=== PATIENT | male | born 1960 | race African-American/Black ===

== ENCOUNTER 2018-10-26 05:59 | Emergency (ER) | payer MEDICAID ==
[~2018-10-26] VITALS: Ht 180.3 cm; Wt 108.9 kg
[~2018-10-26 05:59] MED LIST: ASPIRIN81 M3 PO; HYDROCHLOROTHIA25 MG ORAL; LISINOPRIL20 MG ORAL; METOPROLOL SUCC50 MG ORAL; METOPROLOL TART25 MG ORAL; PLAVIX75 MG ORAL
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
[2018-10-26 06:11] VITALS: BP 168/97
[2018-10-26] MEDS ORDERED: IBUPROFEN600 MG ORAL (06:18)
--- NOTE | 2018-10-26 06:19 | Emergency Room Report ---
History of Present Illness General Chief Complaint: Burn/Smoke Inhalation Source: Patient Present Illness [facility] This is a 58-year-old male with history of hypertension. He presents with a rash to the right lower quadrant abdominal area. He thought it was from a burn. He was washing dishes 2 weeks ago and hot water splashed on him. He had some redness in the abdominal area that lasted about a day or 2. He got better. A week later he started having burning sensation to that area. Noticed some rash to it. Is been a week now not getting better since when he is here. No nausea no vomiting. No fever chills. Allergies: Coded Allergies: No Known Allergies (Unverified , 09/01/12) Patient History Past Medical History: see triage record, old chart reviewed, HTN Past Surgical History: none Pertinent Family History: none Social History: Denies: smoking Immunizations: other Reviewed Nursing Documentation: PMH: Agreed; PSxH: Agreed Nursing Documentation-PMH Hx Cardiac Problems: Yes Hx Hypertension: Yes Hx Cancer: No Hx Gastrointestinal Problems: No Hx Neurological Problems: No Hx Cerebrovascular Accident: Yes Review of Systems Eye: Denies: eye pain, blurred vision ENT: Denies: ear pain, nose congestion, throat swelling Respiratory: Denies: cough, shortness of breath Cardiovascular: Denies: chest pain, palpitations Gastrointestinal: Denies: abdominal pain, diarrhea, nausea, vomiting Musculoskeletal: Denies: back pain, joint pain Skin: Reports: rash Neurological: Denies: headache, numbness Endocrine: Denies: increased thirst, increased urine Hematologic/Lymphatic: Denies: easy bruising All Other Systems: negative except mentioned in HPI Physical Exam Vital Signs Date Time Temp Pulse Resp B/P (MAP) Pulse Ox O2 Delivery O2 Flow Rate FiO2 10/26/18 06:00 98.2 74 15 168/97 (120) 93 Room Air Sp02 EP Interpretation: reviewed, normal General Appearance: well appearing, no apparent distress, alert Head: normocephalic, atraumatic Eyes: bilateral eye PERRL, bilateral eye EOMI ENT: hearing grossly normal, normal pharynx Neck: full range of motion, supple, no meningismus Respiratory: chest non-tender, lungs clear, normal breath sounds Cardiovascular #1: regular rate, rhythm, no murmur Gastrointestinal: normal bowel sounds, non tender, no mass, no organomegaly, no bruit, non-distended Musculoskeletal: back normal, gait/station normal, normal range of motion Neurologic: alert, oriented x3 Psychiatric: mood/affect normal Skin: other - Patient with a lesion along the T12 area of his right lower quadrant abdominal area consistent with zoster. It started scabbing over. Medical Decision Making Diagnostic Impression: Primary Impression: Shingles Qualified Codes: B02.9 - Zoster without complications ER Course Presents with shingles. Is been a week now. No need for treatment. Symptomatic care. Will discharge home. Last Vital Signs Date Time Temp Pulse Resp B/P (MAP) Pulse Ox O2 Delivery O2 Flow Rate FiO2 10/26/18 06:11 74 15 Room Air 10/26/18 06:11 98.2 168/97 93 Status: improved Disposition: HOME, SELF-CARE Condition: Stable Scripts Ibuprofen* (MOTRIN*) 600 Mg Tablet 600 MG ORAL THREE TIMES A DAY, #30 TAB 0 Refills Prov: Ramon Valenzuela MD 10/26/18 Additional Instructions: Follow-up your doctor in 7 days. Keep wound clean. Return if worse. Ramon Valenzuela MD Oct 26, 2018 06:19
--- NOTE | 2018-10-26 06:39 | Emergency Room Report ---
Physical Exam Vital Signs Date Time Temp Pulse Resp B/P (MAP) Pulse Ox O2 Delivery O2 Flow Rate FiO2 10/26/18 06:00 98.2 74 15 168/97 (120) 93 Room Air Medical Decision Making Diagnostic Impression: Primary Impression: Shingles Qualified Codes: B02.9 - Zoster without complications ER Course Briefly, this is 58-year-old male who presented for evaluation of rash over the abdomen. He was diagnosed with zoster infection over the T10 dermatome, the wound was covered and the patient was set to be discharged home. He mentioned during his discharge process to the previous physician that he was having increased pain while walking at his job and unilateral swelling of the left ankle and lower foot. He denies any chest pain, shortness of breath. He denies smoking history, diabetes, cardiac history in self or family. He is describing symptoms such as early fatigue that improves with rest and recovery while ambulating, tight socks leaving rings around his feet bilaterally but denies any calf pain or significant swelling. At the time of signout we are awaiting cardiac panel, lower extremity vascular studies to rule out DVT and assess for claudication. He is otherwise stable and has no other complaints Laboratory Tests Test 10/26/18 06:30 White Blood Count 6.6 K/UL (4.8-10.8) Red Blood Count 5.09 M/UL (4.70-6.10) Hemoglobin 14.6 G/DL (14.2-18.0) Hematocrit 44.7 % (42.0-52.0) Mean Corpuscular Volume 88 FL (80-99) Mean Corpuscular Hemoglobin 28.8 PG (27.0-31.0) Mean Corpuscular Hemoglobin Concent 32.7 G/DL (32.0-36.0) Red Cell Distribution Width 13.3 % (11.6-14.8) Platelet Count 224 K/UL (150-450) Mean Platelet Volume 6.1 FL (6.5-10.1) L Neutrophils (%) (Auto) 56.7 % (45.0-75.0) Lymphocytes (%) (Auto) 26.7 % (20.0-45.0) Monocytes (%) (Auto) 9.6 % (1.0-10.0) Eosinophils (%) (Auto) 6.3 % (0.0-3.0) H Basophils (%) (Auto) 0.7 % (0.0-2.0) Sodium Level 143 MMOL/L (136-145) Potassium Level 3.0 MMOL/L (3.5-5.1) L Chloride Level 106 MMOL/L (98-107) Carbon Dioxide Level 28 MMOL/L (21-32) Anion Gap 9 mmol/L (5-15) Blood Urea Nitrogen 11 mg/dL (7-18) Creatinine 0.9 MG/DL (0.55-1.30) Estimate Glomerular Filtration Rate > 60 mL/min (>60) Glucose Level 114 MG/DL (74-106) H Calcium Level 8.4 MG/DL (8.5-10.1) L Total Bilirubin 0.5 MG/DL (0.2-1.0) Aspartate Amino Transferase (AST) 28 U/L (15-37) Alanine Aminotransferase (ALT) 32 U/L (12-78) Alkaline Phosphatase 52 U/L (46-116) Total Creatine Kinase 141 U/L (26-308) Creatine Kinase MB 1.7 NG/ML (0.0-3.6) Creatine Kinase MB Relative Index 1.2 Troponin I 0.022 ng/mL (0.000-0.056) Pro-B-Type Natriuretic Peptide 115 pg/mL (0-125) Total Protein 7.1 G/DL (6.4-8.2) Albumin 3.3 G/DL (3.4-5.0) L Globulin 3.8 g/dL Albumin/Globulin Ratio 0.9 (1.0-2.7) L EKG Diagnostic Results EKG Time: 06:47 Rate: normal Rhythm: NSR ST Segments: no acute changes Other Impression Sinus rhythm, normal intervals, normal axis, no acute ischemic changes. Q waves in III Rhythm Strip Diag. Results Rhythm Strip Time: 06:47 EP Interpretation: yes Rate: 70s Rhythm: NSR Reevaluation Time: 08:44 Last Vital Signs Date Time Temp Pulse Resp B/P (MAP) Pulse Ox O2 Delivery O2 Flow Rate FiO2 10/26/18 06:11 74 15 Room Air 10/26/18 06:11 98.2 168/97 93 Status: improved Reevaluation Impression Labs largely unremarkable. No evidence of DVT on vascular scan. STEWART is 1.1. There is some calcifications of the tibial arteries which may be providing some claudication. The patient can follow-up as an outpatient. He does have a low potassium 3.0 and had oral potassium repletion and will be discharged home on potassium supplements. He understands that he is to follow-up with his PMD for repeat blood work and to discuss this emergency department visit. Again we went over proper wound care of the zoster rash. He can return to the emergency department any new or worsening symptoms. He understands and agrees with this treatment plan was discharged home. Disposition: HOME, SELF-CARE Condition: Stable Scripts Potassium Chloride (Potassium Chloride) 20 Meq Tablet.er 20 MEQ PO DAILY for 5 Days, #5 TAB Prov: Brenton Carvajal MD 10/26/18 Ibuprofen* (MOTRIN*) 600 Mg Tablet 600 MG ORAL THREE TIMES A DAY, #30 TAB 0 Refills Prov: Ramon Valenzuela MD 10/26/18 Referrals: [facility],REFERRING (PCP) Patient Instructions: Shingles, Vibj-bi-Gopl Additional Instructions: Follow-up your doctor in 7 days. Keep wound clean. Return if worse. Brenton Carvajal MD Oct 26, 2018 06:39
[2018-10-26 06:43] LABS: BASOPHILS % (AUTO) 0.7 % (0.0-2.0); EOSINOPHILS % (AUTO) 6.3 % (0.0-3.0); HEMATOCRIT 44.7 % (42.0-52.0); HEMOGLOBIN 14.6 G/DL (14.2-18.0); LYMPHOCYTES % (AUTO) 26.7 % (20.0-45.0); MEAN CORPUSCULAR VOLUME 88 FL (80-99); MONOCYTES % (AUTO) 9.6 % (1.0-10.0); NEUTROPHILS % (AUTO) 56.7 % (45.0-75.0); PLATELET COUNT 224 K/UL (150-450); RED BLOOD COUNT 5.09 M/UL (4.70-6.10); RED CELL DISTRIBUTION WIDTH 13.3 % (11.6-14.8); WHITE BLOOD COUNT 6.6 K/UL (4.8-10.8)
[2018-10-26 06:52] LABS: ANION GAP 9 mmol/L (5-15); BLOOD UREA NITROGEN 11 mg/dL (7-18); CALCIUM 8.4 MG/DL (8.5-10.1); CARBON DIOXIDE 28 MMOL/L (21-32); CHLORIDE 106 MMOL/L (98-107); CREATININE 0.9 MG/DL (0.55-1.30); SODIUM 143 MMOL/L (136-145)
--- NOTE | 2018-10-26 06:55 | NUR ---
ED Nurse Note: notified Dr. Alena lopezfied of pt.'s potassium level of 3.0
[2018-10-26 07:07] LABS: ALANINE AMINOTRANSFERASE 32 U/L (12-78); ALBUMIN 3.3 G/DL (3.4-5.0); ALBUMIN/GLOBULIN RATIO 0.9 (1.0-2.7); ALKALINE PHOSPHATASE 52 U/L (46-116); ASPARTATE AMINO TRANSFERASE 28 U/L (15-37); BILIRUBIN,TOTAL 0.5 MG/DL (0.2-1.0); CKMB 1.7 NG/ML (0.0-3.6); CREATINE KINASE 141 U/L (26-308)
--- NOTE | 2018-10-26 07:07 | NUR ---
ED Nurse Note: paged US
--- NOTE | 2018-10-26 07:17 | NUR ---
HAND-OFF: Report given to DEMETRIUS Dc. Patient in stable condition. endorsed pending us.
[2018-10-26] MEDS ORDERED: POTASSIUM CHLO20 ME3 PO (08:38)
[2018-10-26 09:02] VITALS: BP 153/90
--- NOTE | 2018-10-26 09:05 | NUR ---
ER DISCHARGE NOTE: Patient is cleared to be discharged per ERMD, pt is aox4, on room air, with stable vital signs. pt was given dc and prescription instructions, pt was able to verbalize understanding, pt id band and iv site removed without complications. pt is able to ambulate with steady gait. pt took all belongings.
--- NOTE | 2018-10-26 11:40 | Diagnostic Imaging Report ---
Indication: Left lower extremity pain and swelling. Technique: Duplex Doppler imaging performed from the left common femoral vein to the popliteal vein. FINDINGS: Normal compressibility demonstrated from the common femoral vein to the popliteal vein. Respiratory phasicity and good augmentation demonstrated on waveform analysis. There is no evidence of thrombosis. IMPRESSION: No evidence of deep venous thrombosis within the left lower extremity.
--- NOTE | 2018-10-26 11:48 | Diagnostic Imaging Report ---
Indication: Left lower extremity pain and swelling. Assessment of peripheral vascular disease. Technique: Duplex arterial Doppler examination of the left lower extremity and left upper extremity performed in a limited fashion for purposes of obtaining an ankle brachial index. COMPARISON: None FINDINGS: Left brachial artery noted with normal triphasic waveform. Left common femoral artery, posterior tibial artery, anterior tibial artery, dorsalis pedis artery demonstrate triphasic to biphasic antegrade flow. The left ankle-brachial index is 1.1 which is within normal limits. The left arm BP 150/100. Left leg BP 170/108. IMPRESSION: Left STEWART is 1.1
--- NOTE | 2018-10-26 12:13 | Diagnostic Imaging Report ---
Indication: Chest pain Comparison: 09/13/2017 A single view chest radiograph was obtained. Findings: Mild pulmonary vascular congestion suspected with prominent vascular markings. Heart is mildly enlarged. Bones are unremarkable. IMPRESSION: Suspected mild pulmonary vascular congestion
--- NOTE | 2018-10-28 16:18 | Cardiology Report ---
APPROVED REPORT EKG Measurement Heart [id number] ID [id number] Normal sinus rhythm Normal ECG
== END 2018-10-26 09:06 | disposition home or self-care (01) ==
LOC: EMR 06:18
DX: B02.9 Zoster without complications (principal); I10 Essential (primary) hypertension; Z86.73 Personal history of transient ischemic attack (TIA), and cerebral infarction without residual deficits
CPT/HCPCS: 36415; 71045; 80053; 82550; 82553; 83880; 84484; 85025; 93005; 93922; 93971; 99284; J8499

== ENCOUNTER 2019-09-16 13:07 | Emergency (ER) | payer MEDICAID ==
[~2019-09-16 13:07] MED LIST changes: +IBUPROFEN600 MG ORAL; +POTASSIUM CHLO20 ME3 PO
[2019-09-16] MEDS ORDERED: Ketorolac 30mg Inj IM ONE (13:45)
== END 2019-09-16 14:44 | disposition home or self-care (01) ==
DX: M25.552 Pain in left hip (principal); M25.551 Pain in right hip; I10 Essential (primary) hypertension; M06.9 Rheumatoid arthritis, unspecified
CPT/HCPCS: 96372; J1100; J1885; Z7502